=== PATIENT | male | born 1955 | race Caucasian/White ===

== ENCOUNTER 2023-11-24 08:47 | Emergency (ER) | payer MEDICARE | END 2023-11-24 09:36 | disposition home or self-care (01) | LOC: MADERS 08:47 | DX: H53.9 Unspecified visual disturbance (principal); J44.9 Chronic obstructive pulmonary disease, unspecified; Z87.891 Personal history of nicotine dependence | CPT/HCPCS: 99283 ==

== ENCOUNTER 2025-04-13 11:08 | Outpatient (CLI) | payer MEDICARE, BC | END 2025-04-13 11:09 | disposition home or self-care (01) | LOC: MADLAB 11:08 | PROVIDERS: ATTEND Radiology Radiation Oncology | DX: C61 Malignant neoplasm of prostate (principal) | CPT/HCPCS: 36415; 84153 ==

== ENCOUNTER 2025-05-10 11:12 | Outpatient (CLI) | payer MEDICARE, BC | END 2025-05-10 11:13 | disposition home or self-care (01) | LOC: MADLAB 11:12 | PROVIDERS: ATTEND Internal Medicine Hematology & Oncology | DX: C61 Malignant neoplasm of prostate (principal) | CPT/HCPCS: 36415; 84153 ==